=== PATIENT | female | born 1960 ===

== ENCOUNTER 2017-07-12 08:04 | Day surgery (SDC) | payer OTHER ==
[2017-06-23 08:28] VITALS: BMI 26.9
[2017-07-12] MEDS ORDERED: Simethicone 40 mg/0.6 ml Liquid (30 ml) ONE (08:27)
[2017-07-12] MEDS ORDERED: Propofol 10 mg/ml Inj (20 ML) ONE (10:21)
[2017-07-12] MEDS ORDERED: Midazolam 2 MG/2 ML VIAL ONE (10:27)
[2017-07-12 10:32] VITALS: O2SAT 100
[2017-07-12 12:50] VITALS: BP 110/63; PULSE 59; RESP 14; TEMP 96.3
== END 2017-07-12 11:55 | disposition home or self-care (01) ==
LOC: C.ENDO 08:04
PROVIDERS: ATTEND Internal Medicine Gastroenterology
DX: K62.5 Hemorrhage of anus and rectum (principal); K59.09 Other constipation; K21.9 Gastro-esophageal reflux disease without esophagitis; Z86.010 Personal history of colon polyps; I10 Essential (primary) hypertension; H40.9 Unspecified glaucoma; K64.8 Other hemorrhoids
CPT/HCPCS: 45378; J0171; J2250; J2704

== ENCOUNTER 2018-02-25 19:49 | Emergency (ER) | payer OTHER ==
[2018-02-25 19:49] VITALS: BMI 26.9
[2018-02-25 20:03] VITALS: BP 122/82; PULSE 70; RESP 18; TEMP 98.6; O2SAT 98
[2018-02-25 22:11] LABS: SQUAMOUS EPITHIAL < 1 /hpf (0-5); URINE BILIRUBIN NEGATIVE (NEGATIVE); URINE BLOOD NEGATIVE (NEGATIVE); URINE CLARITY Clear (Clear); URINE COLOR Straw (YELLOW); URINE GLUCOSE (UA) NORMAL (Normal); URINE LEUKOCYTE ESTERASE NEG Leu/uL (Negative); URINE PROTEIN NEGATIVE (NEGATIVE); URINE UROBILINOGEN NORMAL mg/dL (0.2-1.0)
--- NOTE | 2018-02-25 22:20 | C.PDOC ---
Time Seen by Provider: 02/25/18 21:13 Chief Complaint (Nursing): Dizziness/Lightheaded Past Medical History Vital Signs: Last Vital Signs Temp 98.6 F 02/25/18 20:01 Pulse 70 02/25/18 20:01 Resp 18 02/25/18 20:01 BP 122/82 02/25/18 20:01 Pulse Ox 98 02/25/18 20:01 - Medical History PMH: Arthritis, Asthma, Colonic Polyps, HTN, Hypercholesterolemia, Osteoporosis Denies: Chronic Kidney Disease Surgical History: Cholecystectomy, Endoscopy - [facility] Procedures DX ULTRASOUND-HEAD/NECK (11/08/12) ENDO EXCISION/DEST OF LESION OR TISSUE OF STOMACH (03/04/15) ENDOSC POLYPECTOMY OF LG INTEST (04/12/13) INTRAOPER CHOLANGIOGRAM (01/17/13) LAPAROSCOPIC CHOLECYSTECTOMY (01/17/13) PERCUTAN NEEDLE BX OF THYROID GLAND (11/08/12) Family History: States: CAD, Diabetes - Social History Hx Tobacco Use: No Hx Alcohol Use: No Hx Substance Use: No - Immunization History Hx Tetanus Toxoid Vaccination: No Hx Influenza Vaccination: No Hx Pneumococcal Vaccination: No ED Course And Treatment - Laboratory Results Lab Interpretation: Normal (UA neg.) O2 Sat by Pulse Oximetry: 98 Reevaluation Time: 22:19 Reassessment Condition: Improved (feels much better, vertigo resolved) Medical Decision Making Medical Decision Making: recurrent vertigo, similar 2 yrs ago improved with ED tx normal ear/neuro exam Disposition Doctor Will See Patient In The: Office Counseled Patient/Family Regarding: Studies Performed, Diagnosis - Disposition Disposition: HOME/ ROUTINE Disposition Time: 22:19 Condition: GOOD - Clinical Impression Clinical Impression: Vertigo
--- NOTE | 2018-02-28 18:43 | CARD ---
APPROVED REPORT Date of service: 02/25/2018 EKG Measurement Heart [id number] ID [id number] <Conclusion> Normal sinus rhythm Possible Inferior infarct, age undetermined Poor R wave progression Abnormal ECG
== END 2018-02-25 22:40 | disposition home or self-care (01) ==
LOC: C.ER 19:49
DX: R42 Dizziness and giddiness (principal)

== ENCOUNTER 2018-07-23 10:04 | Outpatient (CLI) | payer OTHER | END 2018-07-23 10:05 | disposition home or self-care (01) | LOC: C.DEXAIC 10:04 | DX: M81.0 Age-related osteoporosis without current pathological fracture (principal) ==